=== PATIENT | female | born 1965 | race Caucasian/White ===

== ENCOUNTER 2020-08-29 13:48 | Emergency (ER) | payer OTHER, SELFPAY ==
[2020-08-29 13:59] VITALS: PULSE 91; RESP 18; TEMP 37; O2SAT 97; BMI 35.7
--- NOTE | 2020-08-29 14:23 | XR_ITS ---
WS: [id number] Left knee, 3 views, 08/29/2020 Clinical Data: fall Comparison: None. Findings: No fractures or dislocations are seen. Minimal medial joint compartment narrowing is present.. The pa tella is intact. The soft tissues are unremarkable. XR/XR knee LT 3V* [id number] Impression: Negative for fracture.
--- NOTE | 2020-08-29 14:23 | XR_ITS ---
WS: [id number] Right foot, 3 views, 08/29/2020 Clinical Data: fall Comparison: None. Findings: No fractures or dislocations are seen. No bone destruction or erosion is noted. The joint spaces and soft tissues are normal. XR/XR foot RT min 3V* 36138 Impression: Negative right foot.
--- NOTE | 2020-08-29 14:23 | XR_ITS ---
WS: [id number] Right knee, 3 views, 08/29/2020 Clinical Data: fall Comparison: None. Findings: No fractures or dislocations are seen. The joint spaces are normal. The patella is intact. The soft t issues are unremarkable. XR/XR knee RT 3V* 31449 Impression: Negative right knee.
--- NOTE | 2020-08-29 14:23 | XR_ITS ---
WS: [id number] Left foot, 3 views, 08/29/2020 Clinical Data: fall Comparison: None. Findings: No fractures or dislocations are seen. No bone destruction or erosion is noted. The joint spaces and soft tissues are normal. XR/XR foot LT min 3V* [id number] Impression: Negative left foot.
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
[2020-08-29 14:39] VITALS: RESP 18
[2020-08-29] MEDS: morphine 4 mg/mL SDV 1 mL IM (14:39)
--- NOTE | 2020-08-29 14:41 | USCV_ITS ---
Delfina Trejo Age: 54 Gender: F : 1965 Exam Date: 08/29/2020 15:14 Ordering Phys: Steve Diaz Technologist: Nivia Bo [place] [facility] [place]: [place] swelling HISTORY: Lower extremity swelling. PROCEDURES: Venous duplex imaging was performed in only the left lower extremity. The following venous structures were evaluated: common femoral vein, profunda vein, proximal portion of the greater saphenous vein, superficial femoral vein, and the popliteal vein. In addition, the posterior tibial and peroneal trunk were evaluated. Serial compression, augmentation maneuvers, and spectral Doppler flow evaluation were performed. FINDINGS: Normal 2-D Doppler and augmentation and compressibility throughout the lower extremity venous structures. Additional imaging through the proximal calf veins also reveals no thrombus. Limited evaluation of the greater saphenous vein is patent with no thrombus.. CONCLUSIONS No evidence of left lower extremity DVT. 2.3 x1.3cm hematoma in the popliteal fossa. Davie Loera MD (Electronically Signed) Final Date: 29 August 2020 17:37 S
--- NOTE | 2020-08-29 15:12 | XR_ITS ---
WS: [id number] Right wrist, 3 views, 08/29/2020 Clinical Data: fall Comparison: None. Findings: No fractures or dislocations are seen. The carpal bones are intact. There is no soft tissue swelling. The distal radius and ulna are not remarkable. XR/XR wrist RT min 3V* [id number] Impression: Negative right wrist.
== END 2020-08-29 16:45 | disposition home or self-care (01) ==
PROVIDERS: Emergency Provider Physician Assistant
DX: M25.562 Pain in left knee (principal); M25.561 Pain in right knee; S81.011A Laceration without foreign body, right knee, initial encounter; W14.XXXA Fall from tree, initial encounter
CPT/HCPCS: 12001; 12345; 73110; 73562; 73630; 93971; 96372; 99281; 99283; J2270

== ENCOUNTER 2021-06-01 14:18 | Emergency (ER) | payer OTHER, MEDICARE, SELFPAY ==
[2021-06-01 15:01] VITALS: BP 144/86; PULSE 78; RESP 18; TEMP 36.6; O2SAT 98; BMI 31.8
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
== END 2021-06-01 17:00 | disposition home or self-care (01) ==
PROVIDERS: Emergency Provider Nurse Practitioner Family
DX: S39.013A Strain of muscle, fascia and tendon of pelvis, initial encounter (principal); V86.95XA Unspecified occupant of 3- or 4- wheeled all-terrain vehicle (ATV) injured in nontraffic accident, initial encounter
CPT/HCPCS: 73502; 73552; 99282

== ENCOUNTER 2021-06-25 15:10 | Emergency (ER) | payer OTHER, MEDICARE, SELFPAY ==
[2021-06-25 15:38] VITALS: BP 129/76; PULSE 107; RESP 18; TEMP 37; O2SAT 95; BMI 31.7
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
[2021-06-25] MEDS: HYDROcodone-acetaminophen 7.5-325 mg Tablet 1 TAB PO (17:36)
[2021-06-25] MEDS: lidocaine 1% INJ 20 mL INJECTION (17:36)
[2021-06-25] MEDS: pantoprazole DR 40 mg Tablet PO (18:58)
[2021-06-25 19:06] VITALS: RESP 16
== END 2021-06-25 19:07 | disposition home or self-care (01) ==
PROVIDERS: Emergency Provider Nurse Practitioner Family
DX: S51.812A Laceration without foreign body of left forearm, initial encounter (principal); S61.411A Laceration without foreign body of right hand, initial encounter; V84.5XXA Driver of special agricultural vehicle injured in nontraffic accident, initial encounter
CPT/HCPCS: 12005; 99283

== ENCOUNTER 2022-05-21 16:14 | Emergency (ER) | payer OTHER, MEDICARE, SELFPAY ==
[2022-05-21 17:28] VITALS: BP 161/84; PULSE 89; RESP 18; TEMP 36.6; O2SAT 97; BMI 31.9
--- NOTE | 2022-05-21 17:46 | W.ED.BACK ---
HPI - Back Pain/Injury General: Chief Complaint: Back Pain/Injury Stated Complaint: back pain Time Seen by Provider: 05/21/22 17:45 History of Present Illness: 56-year-old female comes in today with worsening back pain. Patient has a longtime history of chronic back pain with a nerve stimulator and oxycodone that she routinely uses at home. Patient is also had several fusions of her cervical and lumbar spine. Patient reports mid to low back discomfort worse over the last 2 days with no improvement. Patient denies any loss of bowel or bladder control. Review of Systems Musc: Reports: back pain PFSH ED PFSH: Medical History Back pain with history of spinal surgery Greater than 90 percent neuromuscular blockade measured by train of four peripheral nerve stimulation monitoring Insomnia Pain Social History Smoking and tobacco status: current every day smoker Pets and animals: No Physical Exam Const: COMMON NORMALS: alert Neck/C-Spine: COMMON NORMALS: full ROM Back/Pelvis: THORACIC SPINE/UPPER BACK: No thoracic spinal tenderness and Yes paraspinal muscle tenderness Thoracic paraspinal muscle tenderness: bilateral LUMBAR SPINE/LOWER BACK: Yes lumbar spinal tenderness and Yes paraspinal muscle tenderness Lumbar paraspinal muscle tenderness: bilateral Extremity: COMMON NORMALS: normal to inspection Neuro: SENSORIUM/ORIENTATION: Yes alert Skin: COMMON NORMALS: no rashes or lesions noted GENERAL SKIN EXAM: no rashes or lesions noted Course Vital Signs: Vital signs: Vital Signs Temperature 97.9 F 05/21/22 17:28 Pulse Rate 89 05/21/22 17:28 Respiratory Rate 18 05/21/22 17:28 Blood Pressure 161/84 05/21/22 17:28 Pulse Oximetry 97 05/21/22 17:28 MDM - Back Pain/Injury Medical Decision Making 56-year-old female comes in today with worsening back pain. Patient was concerned that there may be changes in her spine causing her pain. Patient has a long history of degenerative changes and surgeries to her back. Patient routinely takes oxycodone and other medications chronically for her back pain. Patient is also had several surgeries done on her spine. On palpation of her spine is noted that she had some mid to lower lumbar tenderness with paraspinous muscle tenderness bilaterally to the thoracic and lumbar area. No significant redness or inflammation is noted along the spine. Vital signs are normal except for some elevation in blood pressure. Differential diagnosis includes but not limited to exacerbation of chronic pain, discitis, intervertebral disc disease, facet arthropathy. CT of the thoracic and lumbar spine was unremarkable except for degenerative changes. Patient did appear to have some significant foraminal stenosis along the L3-L4 area. Reviewed exam with patient with recommendations for treatment and follow-up. Patient was given a dose of Toradol and dexamethasone in the ER. Patient reported understanding agreed to plan. Labs Radiology Impressions Lumbar Spine CT 05/21/22 17:53 IMPRESSION: 1. No fracture or acute finding. 2. Postsurgical changes with posterior and anterior mechanical fusion of L5-S2. 3. Degenerative changes as described. Thoracic Spine CT 05/21/22 17:53 IMPRESSION: No fracture or acute finding. Discharge Plan Discharge Patient Disposition: Home Clinical Impression: Degenerated intervertebral disc Qualifiers: Spinal region: lumbar Qualified Code(s): M51.36 - Other intervertebral disc degeneration, lumbar region Condition: Stable Prescriptions: New diclofenac sodium 75 mg tablet,delayed release (DR/EC) 75 mg PO BID Qty: 20 0RF No Action duloxetine [Cymbalta] 60 mg capsule,delayed release(DR/EC) 60 mg PO BID 0RF zolpidem [Ambien] 10 mg tablet PO 0RF oxycodone-acetaminophen [Percocet] 10-325 mg tablet 1 tab PO Q8H PRN0RF terbinafine HCl 250 mg tablet 250 mg PO DAILY Qty: 14 0RF ketoconazole 2 % cream 1 applic topical BID Qty: 60 1RF Rx Instructions: Apply twice daily to entire foot, affected area on leg, and between the toes for 4 weeks then prn Discharge Orders: Discharge ED (Routine); Ordered 05/21/22 Ordered By: Kanu Tapia Discharge Diet: Usual diet Discharge Activity: Increase activity as tolerated Patient Instructions: Degenerative Disc Disease (ED) Activity Restrictions/Additional Instructions: Continue with routine medications. Follow-up with primary care for further instructions. Return to ER for new concerns. Coding Level of Care Code ED Label Printing Machinist for Etienne Fwd Exam Detailed
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
--- NOTE | 2022-05-21 17:53 | CTR_ITS ---
PROCEDURE INFORMATION: Exam: CT Lumbar Spine Without Contrast Exam date and time: 05/21/2022 7:12 PM Age: 56 years old Clinical indication: Low back pain; Prior surgery; Surgery date: 6+ months; Surgery type: Fusion, and spinal stimulator; Patient HX: No recent trauma-- but patient is complaining of left leg numbness/ tingling; Additional info: Uncontrolled low back pain TECHNIQUE: Imaging protocol: Computed tomography of the lumbar spine without contrast. Radiation optimization: All CT scans at this facility use at least one of these dose optimization techniques: automated exposure control; mA and/or kV adjustment per patient size (includes targeted exams where dose is matched to clinical indication); or iterative reconstruction. COMPARISON: CT thoracic spin wo con* [id number] 05/21/2022 7:07 PM RADIATION DOSE METRICS: Total DLP (mGy-cm): 1441.4 FINDINGS: Tubes, catheters and devices: Stimulator pack in the posterior lumbar soft tissues with lead extending into the posterior thoracic spinal canal. Bones/joints: Six lumbar type vertebral bodies which will be labeled L1-S1 for the purposes of this exam. The vertebral body stature is maintained. No fracture identified. Mild anterior degenerative subluxation of L5 on S1. Multiple lumbar Schmorl's nodes. Anterior spacer at L5-S1 and S1-S2. Posterior pedicle screws and stabilization hardware at L5-S2. Bilateral decompressive laminectomies at L5 and S1. The facets are intact with hypertrophic degenerative changes. L1-L2: No significant disc protrusion. No severe spinal canal stenosis. No significant neural foraminal narrowing. L2-L3: Mild disc bulge. Mild bilateral foraminal stenosis. Mild central canal stenosis. L3-L4: Disc space narrowing with disc bulge and degenerative spurring. Moderate bilateral foraminal stenosis. Mild central canal stenosis. L4-L5: No significant disc protrusion. No severe spinal canal stenosis. No significant neural foraminal narrowing. L5-S1: Partial discectomy with anterior fusion. No left foraminal stenosis. Moderate right bony foraminal stenosis. No central canal stenosis. S1-2: Discectomy with anterior fusion. No foraminal or central canal stenosis. Soft tissues: Unremarkable. CT/CT lumbar spine wo con* [id number] IMPRESSION: 1. No fracture or acute finding. 2. Postsurgical changes with posterior and anterior mechanical fusion of L5-S2. 3. Degenerative changes as described.
[2022-05-21] MEDS: orphenadrine 30 mg/mL Inj 2 mL 60 MG IM (18:33)
[2022-05-21] MEDS: ketorolac 30 mg/mL INJ IM (18:35)
[2022-05-21] MEDS: dexamethasone 10 mg/mL INJ IM (18:36)
== END 2022-05-21 20:40 | disposition home or self-care (01) ==
PROVIDERS: Emergency Provider Nurse Practitioner Family
DX: M51.36 Other intervertebral disc degeneration, lumbar region (principal); F17.210 Nicotine dependence, cigarettes, uncomplicated
CPT/HCPCS: 72128; 72131; 96372; 99285; J1100; J1885; J2360

== ENCOUNTER 2025-05-24 13:18 | Outpatient (CLI) | payer OTHER, SELFPAY ==
--- NOTE | 2025-05-24 13:25 | CT_ITS ---
WS: [id number] CT LEFT LOWER EXTREMITY, NONCONTRAST HISTORY: LEFT LOWER LEG MASS BELOW KNEE Technique: All CT scans at [facility] use at least one of these dose optimization techniques: automated exposure control; mA and/or kV adjustment per patient size (includes targeted exams where dose is matched to clinical indication); or iterative reconstruction. DLP: 1047.17 mGy.cm COMPARISON: None available. No destructive bone lesions or fracture. Normal alignment of the tibia and fibula. No soft tissue masses identified. Palpable area along the posterior medial LEFT knee is not marked prior to the CT. There is no CT abnormality identified. No Kuhn's cyst of any significance is noted. Muscles are symmetric without significant atrophy. No significant suprapatellar joint effusion. There is a very small amount of edema along the anterior patella extending to the tibial tubercle. CT/CT lower leg LT wo con* [id number] IMPRESSION: 1. No soft tissue mass identified. 2. No bone destruction or expansile lesion. 3. No Kuhn's cyst identified by CT. If mass persists consider follow-up MRI e valuation. Ultrasound may provide additional soft tissue information if this is a focal lesion.
== END 2025-05-24 13:19 | disposition home or self-care (01) ==
LOC: RAD 13:19
PROVIDERS: PCP Nurse Practitioner; Visit Provider Nurse Practitioner
DX: Z01.89 Encounter for other specified special examinations (principal); R60.0 Localized edema
CPT/HCPCS: 73700